=== PATIENT | female | born 1960 | race African-American/Black ===

== ENCOUNTER 2018-05-16 15:19 | Inpatient (IN) | payer MEDICAID ==
[~2018-05-16] VITALS: Ht 175.3 cm; Wt 116.1 kg
[~2018-05-16 15:19] MED LIST: ALBU90AE IH; B50 PO
[2018-05-16 18:21] LABS: BASOPHILS % 1.1 % (0.0-2.0); EOSINOPHILS % 1.4 % (0.0-5.0); HEMATOCRIT. 42.1 % (36.0-48.0); HEMOGLOBIN. 13.8 g/dL (12.0-16.0); LYMPHOCYTES % 20.2 % (20.0-50.0); MEAN CORPUSCULAR HEMOGLOBIN 26.6 pg (28.0-32.0); MEAN CORPUSCULAR VOLUME 81.1 fL (81.0-99.0); MEAN PLATELET VOLUME 9.5 fl (7.4-10.4); MONOCYTES % 8.6 % (2.0-8.0); NEUTROPHILS % 68.7 % (40.0-76.0); PLATELET 267 x1000/uL (130-400); RED BLOOD CELL COUNT 5.19 mill/uL (4.2-5.4); RED CELL DISTRIBUTION WIDTH 14.8 % (11.6-14.6)
[2018-05-16 18:28] LABS: CHLORIDE 107 mEq/L (98-107)
[2018-05-16 18:29] LABS: PARTIAL THROMBOPLASTIN TIME 30.8 sec (23.4-31.0); PROTHROMBIN TIME 10.2 sec (9.1-11.1)
[2018-05-16] MEDS ORDERED: METOCLOPRAMIDE HCL 10MG/2ML VIAL ONE (19:23)
[2018-05-16] MEDS ORDERED: SUCCINYLCHOLINE CHLORIDE 200MG/10ML IV ONE (19:23)
[2018-05-16] MEDS ORDERED: PROPOFOL 200MG/20ML VIAL IV ONE (19:23)
[2018-05-16] MEDS ORDERED: LIDOCAINE HCL/PF 1% 10 MG/ML 5ML VIAL ONE (19:23)
[2018-05-16] MEDS ORDERED: ONDANSETRON HCL 4MG/2ML INJ ONE (19:23)
[2018-05-16] MEDS ORDERED: FENTANYL CITRATE/PF 50MCG/ML 2ML VIAL ONE ×2 (19:23→20:09)
[2018-05-16] MEDS ORDERED: GLYCOPYRROLATE 0.2 MG/ML 2ML VIAL ONE (19:23)
[2018-05-16] MEDS ORDERED: MIDAZOLAM HCL 2 MG/2 ML VIAL ONE (19:23)
[2018-05-16] MEDS ORDERED: VANCOMYCIN HCL 500 MG/VIAL ONE (19:26)
[2018-05-16] MEDS ORDERED: PIPERACILLIN/TAZ 3.375G PREMIX 50 ML IV NR (19:30)
[2018-05-16] MEDS ORDERED: PIPERACILLIN/TAZOBACTAM 3.375GM/50ML PREMIX IV NR (19:30)
[2018-05-16] MEDS ORDERED: BUPIVACAINE HCL 0.5% (5MG/ML) 50ML ONE (19:47)
[2018-05-16] MEDS ORDERED: BACITRACIN 50,000 UNITS/VIAL ONE (19:48)
[2018-05-16] MEDS ORDERED: SODIUM CHLORIDE 0.9% 1,000 ML IV ONE (19:58)
[2018-05-16] MEDS ORDERED: HYDROMORPHONE HCL/PF 2MG/ML CPJ IV PRN ×2 (20:00→20:45)
[2018-05-16] MEDS ORDERED: ONDANSETRON HCL 4MG/2ML INJ IV PRN (20:00)
[2018-05-16] MEDS ORDERED: MORPHINE SULFATE 4 MG/ML CPJ (NOT FOR IM USE) IV PRN (20:00)
[2018-05-16] MEDS ORDERED: MEPERIDINE HCL/PF 25MG/ML CPJ IV PRN ×2 (20:00)
[2018-05-16] MEDS ORDERED: MAGNESIUM HYDROXIDE 400MG/5ML 30ML UDC PO PRN (20:45)
[2018-05-16] MEDS ORDERED: HYDROCODONE/ACETAMINOPHEN 10/325MG TABLET PO PRN (20:45)
[2018-05-16] MEDS ORDERED: ACETAMINOPHEN 325MG TABLET PO NR (20:45)
[2018-05-16] MEDS ORDERED: HYDROMORPHONE HCL/PF 2MG/ML CPJ IM PRN (20:45)
[2018-05-16] MEDS ORDERED: BACITRACIN 15GM TUBE TOP ONE (20:47)
[2018-05-16] MEDS ORDERED: ALBUTEROL (0.083%) 2.5MG/3ML NEB HHN PRN (21:15)
[2018-05-16 21:50] VITALS: BP 139/84
[2018-05-16 23:16] VITALS: BP 139/84
[2018-05-17] VITALS: BP 139/56
[2018-05-17] MEDS ORDERED: PIPERACILLIN/TAZ 3.375G PREMIX 50 ML IV SCH (01:30)
[2018-05-17] MEDS: PIPERACILLIN/TAZ 3.375G PREMIX 50 ML IV SCH ×4 (03:45→21:28)
[2018-05-17 04:00] VITALS: BP 126/56
[2018-05-17] MEDS: VANCOMYCIN 1 G PREMIX 200 ML IV SCH ×2 (06:45→18:10)
[2018-05-17] MEDS: HYDROCODONE/ACETAMINOPHEN 10/325MG TABLET PO PRN ×3 (06:49→16:52)
[2018-05-17 08:00] VITALS: BP 121/67
[2018-05-17] MEDS: DOCUSATE SODIUM 100MG CAPSULE PO SCH ×2 (08:34→16:51)
[2018-05-17 12:00] VITALS: BP 128/68
[2018-05-17] MEDS ORDERED: PNEUMOCOCCAL 23-VAL P-SAC VAC 0.5 ML IM ONE (12:00)
[2018-05-17 16:00] VITALS: BP 142/75
[2018-05-17 20:00] VITALS: BP 136/72
[2018-05-18] VITALS (7 sets, daily range): BP systolic 130–166; BP diastolic 64–90
[2018-05-18] MEDS: PIPERACILLIN/TAZ 3.375G PREMIX 50 ML IV SCH ×4 (02:37→21:07)
[2018-05-18] MEDS: VANCOMYCIN 1 G PREMIX 200 ML IV SCH (06:37)
[2018-05-18 08:38] LABS: CHLORIDE 105 mEq/L (98-107)
[2018-05-18 08:49] LABS: VANCOMYCIN TROUGH 8.8 ug/mL (5.0-10.0)
[2018-05-18] MEDS: DOCUSATE SODIUM 100MG CAPSULE PO SCH ×2 (08:57→16:07)
[2018-05-18] MEDS: VANCOMYCIN 1250MG in DEXTROSE 5% WATER 250ML IV SCH (17:51)
[2018-05-18] MEDS: HYDROCODONE/ACETAMINOPHEN 10/325MG TABLET PO PRN (18:21)
[2018-05-19] VITALS: BP 146/89
[2018-05-19 04:00] VITALS: BP 142/74
[2018-05-19] MEDS: PIPERACILLIN/TAZ 3.375G PREMIX 50 ML IV SCH ×4 (05:10→22:52)
[2018-05-19] MEDS: VANCOMYCIN 1250MG in DEXTROSE 5% WATER 250ML IV SCH ×2 (05:57→17:30)
[2018-05-19] MEDS: HYDROCODONE/ACETAMINOPHEN 10/325MG TABLET PO PRN (06:53)
[2018-05-19 08:00] VITALS: BP 123/68
[2018-05-19] MEDS: DOCUSATE SODIUM 100MG CAPSULE PO SCH ×2 (08:18→17:36)
[2018-05-19 12:00] VITALS: BP 122/72
[2018-05-19 16:00] VITALS: BP 136/83
[2018-05-19 20:00] VITALS: BP 124/56
[2018-05-20] VITALS: BP 169/93
[2018-05-20] MEDS: HYDROCODONE/ACETAMINOPHEN 10/325MG TABLET PO PRN (00:07)
[2018-05-20] MEDS: PIPERACILLIN/TAZ 3.375G PREMIX 50 ML IV SCH ×2 (02:20→09:13)
[2018-05-20 04:00] VITALS: BP 129/75
[2018-05-20] MEDS: VANCOMYCIN 1250MG in DEXTROSE 5% WATER 250ML IV SCH (05:16)
[2018-05-20 06:39] LABS: BASOPHILS % 0.4 % (0.0-2.0); EOSINOPHILS % 4.9 % (0.0-5.0); HEMATOCRIT. 37.4 % (36.0-48.0); HEMOGLOBIN. 12.1 g/dL (12.0-16.0); LYMPHOCYTES % 38.4 % (20.0-50.0); MEAN CORPUSCULAR HEMOGLOBIN 26.3 pg (28.0-32.0); MEAN PLATELET VOLUME 9.6 fl (7.4-10.4); MONOCYTES % 8.4 % (2.0-8.0); NEUTROPHILS % 47.9 % (40.0-76.0); PLATELET 213 x1000/uL (130-400); RED BLOOD CELL COUNT 4.62 mill/uL (4.2-5.4); RED CELL DISTRIBUTION WIDTH 14.6 % (11.6-14.6)
[2018-05-20 06:57] LABS: CHLORIDE 104 mEq/L (98-107)
[2018-05-20 07:09] LABS: VANCOMYCIN TROUGH 8.8 ug/mL (5.0-10.0)
[2018-05-20 08:00] VITALS: BP 144/83
[2018-05-20] MEDS: DOCUSATE SODIUM 100MG CAPSULE PO SCH ×2 (09:13→16:42)
[2018-05-20] MEDS ORDERED: LIDOCAINE HCL 1% 20ML VIAL (Pyxis) INJ ONE (10:50)
[2018-05-20] MEDS: DIPHENHYDRAMINE 25MG CAPSULE PO PRN (11:48)
[2018-05-20 12:00] VITALS: BP 147/80
[2018-05-20] MEDS ORDERED: ERTAPENEM XX SCH (13:30)
[2018-05-20 16:00] VITALS: BP 143/69
[2018-05-20] MEDS: ERTAPENEM SODIUM 1 G in SODIUM CHLORIDE 0.9% 50 ML IV SCH (16:41)
[2018-05-20] MEDS: VANCOMYCIN 1500MG in DEXTROSE 5% WATER 250ML IV SCH (16:42)
[2018-05-20 20:00] VITALS: BP 146/84
[2018-05-21] VITALS: BP 143/84
[2018-05-21] MEDS: VANCOMYCIN 1500MG in DEXTROSE 5% WATER 250ML IV SCH ×2 (03:18→17:38)
[2018-05-21 04:00] VITALS: BP 140/73
[2018-05-21 08:00] VITALS: BP 138/70
[2018-05-21] MEDS: DOCUSATE SODIUM 100MG CAPSULE PO SCH ×2 (09:00→17:00)
[2018-05-21 12:00] VITALS: BP 147/84
[2018-05-21] MEDS: DIPHENHYDRAMINE 25MG CAPSULE PO PRN (12:38)
[2018-05-21 16:00] VITALS: BP 147/90
[2018-05-21] MEDS: ERTAPENEM SODIUM 1 G in SODIUM CHLORIDE 0.9% 50 ML IV SCH (16:27)
== END 2018-05-21 20:21 | disposition home health service (06) | DRG 721 ==
LOC: ER 15:19 → 6EST 22:07
PROVIDERS: ADMIT Orthopaedic Surgery; ATTEND Orthopaedic Surgery
PROC: 0JBQ0ZZ Excision of Right Foot Subcutaneous Tissue and Fascia, Open Approach (ICD-10-PCS; principal; 2018-05-16 19:00)
PROC: 02HV33Z Insertion of Infusion Device into Superior Vena Cava, Percutaneous Approach (ICD-10-PCS; 2018-05-20)
PROC: B548ZZA Ultrasonography of Superior Vena Cava, Guidance (ICD-10-PCS; 2018-05-20)
PROC: B5181ZA Fluoroscopy of Superior Vena Cava using Low Osmolar Contrast, Guidance (ICD-10-PCS; 2018-05-20)
DX: T81.49XA Infection following a procedure, other surgical site, initial encounter (principal); T81.31XA Disruption of external operation (surgical) wound, not elsewhere classified, initial encounter; E66.01 Morbid (severe) obesity due to excess calories; G89.29 Other chronic pain; J45.909 Unspecified asthma, uncomplicated; R26.9 Unspecified abnormalities of gait and mobility; Y83.8 Other surgical procedures as the cause of abnormal reaction of the patient, or of later complication, without mention of misadventure at the time of the procedure; M19.012 Primary osteoarthritis, left shoulder; Z68.37 Body mass index [BMI] 37.0-37.9, adult; Z90.12 Acquired absence of left breast and nipple; Z90.710 Acquired absence of both cervix and uterus; Z91.19 Patient's noncompliance with other medical treatment and regimen; Z99.3 Dependence on wheelchair; Y92.89 Other specified places as the place of occurrence of the external cause
CPT/HCPCS: 36415; 36569; 71045; 73030; 76937; 77001; 80048; 80202; 87070; 87075; 87077; 87186; 88304; 90732; 93005; 97162; 97530; 99285; C1725; C1758; C1893; J0330; J1335; J2250; J2405; J2543; J2704; J2765; J3010; J3370; J3490; J7040; J7060; J7611; Q0163